=== PATIENT | female | born 2000 | race Two or more races ===

== ENCOUNTER 2024-06-11 05:35 | Day surgery (SDC) | payer MEDICAID, SELFPAY ==
--- NOTE | 2024-06-07 15:11 | ESHP_ITS ---
RE: JEVON HUITRON : 2000 DATE OF ADMISSION: 06/11/2024 HISTORY OF PRESENT ILLNESS: This is a 23-year-old 3, para 3-0-0-3 with endometrial polyp who presents for hysteroscopic removal of endometrial polyp. ALLERGIES: LEXAPRO. MEDICATIONS: 1. Low estrogen control pill 1 p.o. daily. 2. Buspirone 10 mg 1 tablet p.o. b.i.d. PAST MEDICAL HISTORY: labor, cholestasis of , endometriosis, COVID-19 infection, cervical dysplasia, and kidney stones. SOCIAL HISTORY: She denies any alcohol, drug use, or smoking. She is single. FAMILY HISTORY: Diabetes, hypertension, stroke, hypothyroidism, kidney disease. Brother has spina bifida, prior child autism. OBSTETRIC HISTORY: In July 2014, 25-week, normal vaginal delivery, labor, twin gestations; in 04/2018, 40 weeks, delivery, 8 pound 1 ounce male; in 04/2022, 39 week,s delivery, 7 pound 5 ounce female. PAST SURGICAL HISTORY: delivery in 2017 and 2021. REVIEW OF SYSTEMS: She denies any chest pain, palpitations, cough, fever, or shortness of breath or lower extremity pain. She denies any headache, change in vision or right upper quadrant pain. PHYSICAL EXAMINATION: VITAL SIGNS: Blood pressure is 120/70, heart rate 88, respirations 18, temperature 98.2. HEENT: Oropharynx and sclerae are clear. LUNGS: Clear to auscultation bilaterally. HEART: Regular rate and rhythm. ABDOMEN: Nontender. Old Pfannenstiel scar noted. PELVIC: Deferred. EXTREMITIES: Nontender. SKIN: No gross rashes or lesions. NEUROLOGIC: No focal deficits. ASSESSMENT: 1. Abnormal uterine bleeding. 2. Endometrial polyp. PLAN: Hysteroscopy, MyoSure removal of endometrial polyp, fractional dilatation and curettage. Informed consent was obtained. The patient was made aware of the risks, complications, alternatives, and benefits of the proposed procedure and she agrees. DT: 13:51:07 TT: 15:09:00 Ref: [id number] - TID: [id number] [facility]
[2024-06-10 08:38] VITALS: BMI 32.0
[2024-06-10 09:10] LABS: Basophils % (Auto) 0 % (0-2.5); Eosinophils # (Auto) 0.1 Thou/mm3 (0.0-0.5); Eosinophils % (Auto) 1 % (0-10); Hematocrit 38.6 % (36.0-46.0); Hemoglobin 13.3 g/dL (12.0-16.0); Immature Granulocytes % (Auto) 0 % (0-0); Lymphocytes # (Auto) 1.6 Thou/mm3 (1.0-4.8); Lymphocytes % (Auto) 31 % (10-50); Mean Corpuscular HGB Conc 34.5 g/dl (31.0-37.0); Mean Corpuscular Hemoglobin 31.1 pg (25.0-35.0); Mean Corpuscular Volume 90 fL (80-100); Monocytes # (Auto) 0.4 Thou/mm3 (0.0-0.8); Monocytes % (Auto) 8 % (0-12); Neutrophils # (Auto) 3.1 Thou/mm3 (1.8-7.7); Neutrophils % (Auto) 61 % (37-80); Nucleated Red Blood Cell % 0 /100 WBC (0); Platelet Count 248 Thou/mm3 (140-440); RDW Standard Deviation 39.7 fL (36.4-46.3); Red Blood Count 4.27 Miln/mm3 (4.00-5.20); White Blood Count 5.1 Thou/mm3 (3.6-11.0)
[2024-06-10 09:21] LABS: Partial Thromboplastin Time 27.2 Seconds (22.0-36.0); Prothrombin Time 11.3 Seconds (9.0-12.2)
[2024-06-10 09:29] LABS: Alanine Aminotransferase 32 U/L (10-49); Albumin, Serum 4.9 gm/dL (3.5-5.0); Albumin/Globulin Ratio 1.6 (1.2-2.2); Alkaline Phosphatase 75 U/L (46-116); Anion Gap 7 (7-16); Aspartate Amino Transferase 29 U/L (0-34); BUN/Creatinine Ratio 14 Ratio (12-20); Beta HCG,Quantitative < 1 mIU/mL (<5.0); Blood Urea Nitrogen 10 mg/dL (9-23); Calcium 10.2 mg/dL (8.3-10.6); Calcium (Corrected) 10.2 mg/dL (8.5-10.1); Carbon Dioxide 26.6 mMol/L (20.0-31.0); Chloride 105 mMol/L (98-107); Creatinine (Component) 0.7 mg/dL (0.6-1.3); Estimated Creatinine Clearance 125.7 mL/min (>60); Glucose 98 mg/dL (74-106); Osmolality,Calculated 276 (275-295); Potassium 4.7 mMol/L (3.4-5.1); Sodium 139 mMol/L (136-145); Total Protein 7.9 gm/dL (5.7-8.2); eGFR > 60 See Note
[2024-06-11] VITALS (9 sets, daily range): BP systolic 96–132; BP diastolic 60–93; PULSE 60–88; RESP 12–18; TEMP 36.1–36.6; O2SAT 96–100; BMI 31.6
[2024-06-11] MEDS: RINGERS LACTATED 1000 ML 1,000 ML 30 ML IV (06:28)
--- NOTE | 2024-06-11 08:10 | SUR.PHASEI ---
pt received from OR in recovery bay 1. pt asleep but responds to voice, breathing unlabored on room air. v/s stable. pt dressing peripad scant bleeding noted. report received from Dr. Jama and Yoana ARMSTRONG.
[2024-06-11] MEDS: fentaNYL CIT INJ 50 mCg/ML AMP 2ML 25 MCG IV ×3 (08:30→09:08)
[2024-06-11] MEDS: ACETAMINOPHEN IVPB 1,000 MG/100 ML VIAL 250 MG IV (08:39)
--- NOTE | 2024-06-11 08:44 | ESOP_ITS ---
RE: JEVON HUITRON : 2000 DATE OF OPERATION: 06/11/2024 PREOPERATIVE DIAGNOSES: 1. Endometrial polyp. 2. Abnormal uterine bleeding. POSTOPERATIVE DIAGNOSES: 1. Endometrial polyp. 2. Abnormal uterine bleeding. PROCEDURE PERFORMED: 1. Hysteroscopy. 2. MyoSure removal of endometrial polyp. 3. Fractional dilation and curettage. SURGEON: Elías Mckeon DO STRATEGIC ANALYST: None. ANESTHESIA: General. ANESTHESIOLOGIST: Dr. Jama. ESTIMATED BLOOD LOSS: 5 mL. COMPLICATIONS: None. COUNTS: Correct. PATHOLOGY: 1. Endometrial polyp. 2. Endocervical curettings. 3. Endometrial curettings. FINDINGS: Retroverted uterus sounds to 8 cm and endometrial polyp in the anterior fundal aspect of the uterus approximately 5 x 5 mm. Otherwise, normal uterine and endocervical cavity. DESCRIPTION OF PROCEDURE: After proper informed consent was obtained and the patient made aware of the risks, complications, alternatives, benefits of the proposed procedure, she was taken to the operating room where she underwent induction of general anesthesia. She was placed in the dorsal lithotomy position. She was prepped and draped in the usual sterile fashion and speculum was placed in the vagina. Single-tooth tenaculum was used to grasp the posterior lip of the cervix. The uterine cavity was measured at 8.5 cm. The cervix was dilated to accommodate the 5.5 mm Omni hysteroscope. The hysteroscope was then utilized to visualize the endocervix and uterine cavity and using normal saline as the distending media. The uterine cavity was visualized and the above findings noted. The MyoSure Reach device was then utilized to remove the endometrial polyp and sample endometrial tissue in the uterine cavity. In addition, the Kevorkian curette was used to curette the cervical cavity and then the uterine cavity was curetted and specimen sent to Pathology. She was reversed from general anesthesia in the supine position and transferred to the recovery room in stable condition. She tolerated the procedure well. Counts were correct. I discussed with the patient, the nature of her condition, the intraoperative findings, and expectation for recovery. All questions answered. DT: 08:24:24 TT: 08:43:00 Ref: [id number] - TID: [id number]
--- NOTE | 2024-06-11 08:44 | SUR.PHASEII ---
pt able to tolerate ice chips without difficulty swallowing or nausea/vomiting.
--- NOTE | 2024-06-11 09:35 | SUR.PHASEII ---
pt awake and alert, breathing unlabored on room air. v/s stable. pt dressing peripad scant blood noted. pt able to ambulate to wheelchair with steady gait. d/c instructions given with Deandra in room, all questions answered. pt d/c via wheelchair with all belongings.
== END 2024-06-11 09:35 | disposition home or self-care (01) ==
PROVIDERS: PCP Family Medicine; Referring Provider Specialist; Visit Provider Specialist
PROC: 0U5B8ZZ Destruction of Endometrium, Via Natural or Artificial Opening Endoscopic (ICD-10-PCS; CPT 58563; principal; 2024-06-11 07:30)
DX: N84.0 Polyp of corpus uteri (principal)
CPT/HCPCS: 58558; 36415; 80053; 84702; 85025; 85610; 85730; 86850; 86900; 86901; A4217; A4649; J0131; J1100; J2250; J2405; J2704; J3010; J7120; A9270

== ENCOUNTER 2024-10-03 10:45 | Emergency (ER) | payer MEDICAID, SELFPAY ==
[2024-10-03 10:56] VITALS: BP 118/82; PULSE 80; RESP 18; TEMP 36.7; O2SAT 98; BMI 31.5
[2024-10-03 11:07] VITALS: PULSE 107; RESP 18
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
== END 2024-10-03 14:45 | disposition home or self-care (01) ==
PROVIDERS: Emergency Provider Emergency Medicine; PCP Physician Assistant
DX: S13.4XXA Sprain of ligaments of cervical spine, initial encounter (principal); V89.2XXA Person injured in unspecified motor-vehicle accident, traffic, initial encounter
CPT/HCPCS: 70450; 71046; 72125; 99284